=== PATIENT | male | born 1970 | race African-American/Black ===

== ENCOUNTER 2017-02-21 09:43 | Emergency (ER) | payer OTHER ==
[~2017-02-21] VITALS: Ht 190.5 cm; Wt 151.5 kg
[~2017-02-21 09:43] MED LIST: CIPRO HC OTIC S10 M1 OT; CYCLOBENZAPRINE10 MG ORAL; IBUPROFEN800 MG ORAL; PROMETHAZINE-C118 M1 ORAL; UNOBMED
[2017-02-21 09:58] VITALS: BP 150/86
--- NOTE | 2017-02-21 10:02 | Emergency Room Report ---
History of Present Illness General Chief Complaint: Upper Respiratory Illness Source: Patient, Medical Record Present Illness HPI 46-year-old male with history of diabetes and COPD, p/w cough and wheezing for 14 days. +SOB occurs both at rest and on exertion. + Productive cough with yellow sputum , nonbloody . Denies chest pain. Patient was seen by his primary care doctor 2 weeks ago, finished a course of azithromycin as well as cough medicine. Patient only has controller inhaler, which he has been using every day. Patient does not have nebulizer at home. No recent steroid use. Denies fever, chills. Denies sick contacts or recent travel. Patient denies history of ICU admissions, intubations, or usage of BIPAP for asthma. Patient also states that he has mild urinary frequency and burning, but was tested by his doctor and said that his urine was negative. Allergies: Coded Allergies: No Known Allergies (Unverified , 03/21/16) Patient History Past Medical History: see triage record Past Surgical History: none Pertinent Family History: none Reviewed Nursing Documentation: PMH: Agreed, PSxH: Agreed Nursing Documentation-PMH Past Medical History: No History, Except For Hx Cardiac Problems: No Hx Hypertension: Yes Hx Asthma: Yes Hx COPD: No Hx Diabetes: Yes - type 2 Hx Cancer: No Hx Gastrointestinal Problems: Yes - hernia Hx Dialysis: No Hx Neurological Problems: No Hx Cerebrovascular Accident: No Hx Seizures: No Review of Systems All Other Systems: negative except mentioned in HPI Physical Exam Vital Signs Date Time Temp Pulse Resp B/P (MAP) Pulse Ox O2 Delivery O2 Flow Rate FiO2 02/21/17 09:47 97.7 95 16 150/86 96 Room Air Sp02 EP Interpretation: reviewed, normal General Appearance: normal inspection, well appearing, alert, GCS 15, non-toxic , moderate distress, other - +mod resp distress but is speaking in complete sentences Head: normocephalic, atraumatic Eyes: bilateral eye normal inspection, bilateral eye PERRL, bilateral eye EOMI ENT: normal ENT inspection, normal pharynx, normal voice, moist mucus membranes Neck: normal inspection, full range of motion, supple Respiratory: no retraction, speaking full sentences, other - moderate Expiratory wheezing bilaterally, chest symmetrical Cardiovascular #1: normal inspection, regular rate, rhythm, no edema, normal capillary refill Cardiovascular #2: 2+ radial (R), 2+ radial (L) Gastrointestinal: normal inspection, non tender, soft, non-distended, no guarding Genitourinary: no CVA tenderness Musculoskeletal: normal inspection, back normal, normal range of motion, non- tender Neurologic: normal inspection, alert, oriented x3, responsive, motor strength/ tone normal, sensory intact, normal gait, speech normal Psychiatric: normal inspection, judgement/insight normal, memory normal Skin: normal inspection, normal color, no rash, warm/dry, well hydrated, normal turgor Medical Decision Making Diagnostic Impression: Primary Impression: Pneumonia Additional Impression: COPD exacerbation ER Course 38-year-old male with history of COPD p/w cough and shortness of breath for 2 weeks DDX: COPD exacerbation, pneumonia, upper respiratory infection/viral syndrome Plan: combivent nebulizer treatment x 3, PO steroids, CXR ER Course: Patient has been treated with combivent x 3, steroids. CXR reveals R sided pneumonia Repeat lung auscultation: continues to have minimal wheezing b/l Repeat VS reveals normal RR and SpO2. abx given to pneumonia (already finished course of azithro), ceftriaxone/doxy given resp status stable at this time, no bipap required Disposition: Patient will be transferred to outside hospital for insurance purposes Signed out patient to Dr. Cormier who has accepted patient for admission Please note that this Emergency Department Report was dictated using [employer] checker technology software, occasionally this can lead to erroneous entry secondary to interpretation by the dictation equipment. Laboratory Tests Test 02/21/17 10:04 02/21/17 10:40 02/21/17 10:50 Urine Color Yellow Urine Appearance Clear Urine pH 5 (4.5-8.0) Urine Specific [place] 1.025 (1.005-1.035) Urine Protein Negative (NEGATIVE) Urine Glucose (UA) 3+ (NEGATIVE) H Urine Ketones 1+ (NEGATIVE) H Urine Occult Blood Negative (NEGATIVE) Urine Nitrite Negative (NEGATIVE) Urine Bilirubin Negative (NEGATIVE) Urine Urobilinogen 1 MG/DL (0.0-1.0) H Urine Leukocyte Esterase 1+ (NEGATIVE) H Urine RBC 0-2 /HPF (0 - 0) H Urine WBC 0-2 /HPF (0 - 0) Urine Squamous Epithelial Cells Occasional /LPF Urine Bacteria Few /HPF (NONE) Urine Hyaline Casts 2-4 /LPF (NONE) H Urine Mucus Few /LPF (NONE/OCC) H Arterial Blood pH 7.440 (7.350-7.450) Arterial Blood Partial Pressure CO2 44.1 mmHg (35.0-45.0) Arterial Blood Partial Pressure O2 64.0 mmHg (75.0-100.0) L Arterial Blood HCO3 29.9 mmol/L (22.0-26.0) H Arterial Blood Oxygen Saturation 92.4 % (92.0-98.0) Arterial Blood Base Excess 5.1 David Test Positive White Blood Count 9.6 K/UL (4.8-10.8) Red Blood Count 5.42 M/UL (4.70-6.10) Hemoglobin 15.4 G/DL (14.2-18.0) Hematocrit 49.4 % (42.0-52.0) Mean Corpuscular Volume 91 FL (80-99) Mean Corpuscular Hemoglobin 28.3 PG (27.0-31.0) Mean Corpuscular Hemoglobin Concent 31.1 G/DL (32.0-36.0) L Red Cell Distribution Width 13.3 % (11.6-14.8) Platelet Count 217 K/UL (150-450) Mean Platelet Volume 7.9 FL (6.5-10.1) Neutrophils (%) (Auto) 54.8 % (45.0-75.0) Lymphocytes (%) (Auto) 35.3 % (20.0-45.0) Monocytes (%) (Auto) 7.9 % (1.0-10.0) Eosinophils (%) (Auto) 0.8 % (0.0-3.0) Basophils (%) (Auto) 1.3 % (0.0-2.0) Sodium Level 136 mEQ/L (135-145) Potassium Level 4.6 mEQ/L (3.4-4.9) Chloride Level 95 mEQ/L (98-107) L Carbon Dioxide Level 29 mEQ/L (20-30) Anion Gap 12 (5-15) Blood Urea Nitrogen 16 mg/dL (7-23) Creatinine 0.9 mg/dL (0.7-1.2) Estimate Glomerular Filtration Rate > 60 mL/min (>60) Glucose Level 244 mg/dL (74-106) H Calcium Level 9.2 mg/dL (8.6-10.2) Total Bilirubin 0.4 mg/dL (0.0-1.2) Aspartate Amino Transferase (AST) 22 U/L (5-40) Alanine Aminotransferase (ALT) 35 U/L (3-41) Alkaline Phosphatase 55 U/L (40-129) Total Protein 7.3 g/dL (6.6-8.7) Albumin 4.2 g/dL (3.5-5.2) Globulin 3.1 g/dL Albumin/Globulin Ratio 1.3 (1.0-2.7) EKG Diagnostic Results Rate: normal Rhythm: NSR ST Segments: no acute changes ASA given to the pt in ED: No Rhythm Strip Diag. Results EP Interpretation: yes Rate: 91 Rhythm: NSR, no PVC's, no ectopy Chest X-Ray Diagnostic Results Chest X-Ray Diagnostic Results : Chest X-Ray Ordered: Yes # of Views/Limited/Complete: 1 View Indication: Shortness of Breath EP Interpretation: Yes Interpretation: other - R sided infilrate Impression: Other - R sided pneumonia Electronically Signed by: Electronically signed by Aline Hauser MD Last Vital Signs Date Time Temp Pulse Resp B/P (MAP) Pulse Ox O2 Delivery O2 Flow Rate FiO2 02/21/17 09:47 97.7 95 16 150/86 96 Room Air Disposition: XFER SHT-TRM HOSP Condition: Serious Scripts Benzonatate* (TESSALON PERLE*) 100 Mg Capsule 100 MG ORAL THREE TIMES A DAY for 7 Days, #21 PERLE 0 Refills Prov: Retino,Bettyirose M.D. 02/21/17 Prednisone* (PREDNISONE*) 20 Mg Tablet 40 MG ORAL DAILY for 5 Days, #5 TAB 0 Refills Prov: Retino,Clairose M.D. 02/21/17 Albuterol Sulfate* (ALBUTEROL SULFATE HHN*) 2.5 Mg/3 Ml Vial.neb 2.5 MG HHN Q4H Y for Shortness of Breath, #25 VIAL 0 Refills Prov: Retino,Clairose M.D. 02/21/17 Nebulizer (Compact Compressor Nebulizer) 1 Each Each [facility], #1 0 Refills Prov: RetinoBettyirose M.D. 02/21/17 RetinoBettyirose [email or web address] Feb 21, 2017 10:02
[2017-02-21] MEDS ORDERED: ALBUTEROL2.5 MG/3 M HHN (10:13)
[2017-02-21] MEDS ORDERED: COMPACT COMPRE1 EACH MC (10:13)
[2017-02-21] MEDS ORDERED: PREDNISONE20 MG ORAL (10:13)
[2017-02-21] MEDS ORDERED: TESSALON PERLE100 MG ORAL (10:17)
[2017-02-21] MEDS: DuoNeb 0.5-3(2.5)mg/3ml neb HHN SCH ×2 (10:18→10:27)
[2017-02-21] MEDS ORDERED: cefTRIAXone 1 GM in NS 55 ML IVPB ONE (10:30)
[2017-02-21] MEDS ORDERED: VITAMIN B COMP1 EAC2 ORAL (10:41)
[2017-02-21] MEDS ORDERED: GABAPENTIN300 MG ORAL (10:41)
[2017-02-21] MEDS ORDERED: GLIPIZIDE5 MG ORAL (10:41)
[2017-02-21] MEDS ORDERED: JANUMET 50-1,01 EACH ORAL (10:41)
[2017-02-21] MEDS ORDERED: COMBIVENT RESPIM4 GM IH (10:41)
[2017-02-21] MEDS ORDERED: MI-ACID80 MG PO (10:41)
[2017-02-21] MEDS ORDERED: DICLOFENAC SODI75 MG ORAL (10:41)
[2017-02-21] MEDS ORDERED: EZETIMIBE10 MG PO (10:41)
[2017-02-21] MEDS ORDERED: DOK250 M1 PO (10:41)
[2017-02-21 10:47] LABS: ABG ALLEN TEST POSITIVE; ABG BASE EXCESS 5.1; ABG PCO2 44.1 mmHg (35.0-45.0)
--- NOTE | 2017-02-21 10:54 | Diagnostic Imaging Report ---
Indication: Dyspnea Comparison: None A single view chest radiograph was obtained. Findings: Exam limited by rotation. There is a suggestion of interstitial edema. Heart is normal in size. The homero appear prominent which is probably vascular in nature. Bones are unremarkable. Impression: Mild interstitial edema suspected. Please correlate clinically. Suboptimal evaluation due to rotation
[2017-02-21 11:05] LABS: BASOPHILS % (AUTO) 1.3 % (0.0-2.0); EOSINOPHILS % (AUTO) 0.8 % (0.0-3.0); LYMPHOCYTES % (AUTO) 35.3 % (20.0-45.0); MEAN CORPUSCULAR HEMOGLOBIN 28.3 PG (27.0-31.0); MEAN CORPUSCULAR HGB CONC 31.1 G/DL (32.0-36.0); MEAN CORPUSCULAR VOLUME 91 FL (80-99); MEAN PLATELET VOLUME 7.9 FL (6.5-10.1); MONOCYTES % (AUTO) 7.9 % (1.0-10.0); NEUTROPHILS % (AUTO) 54.8 % (45.0-75.0); PLATELET COUNT 217 K/UL (150-450); RED BLOOD COUNT 5.42 M/UL (4.70-6.10); RED CELL DISTRIBUTION WIDTH 13.3 % (11.6-14.8); WHITE BLOOD COUNT 9.6 K/UL (4.8-10.8)
[2017-02-21] MEDS ORDERED: Methocarbamol 750mg tab ORAL ONE (11:15)
[2017-02-21 11:19] LABS: APPEARANCE,URINE CLEAR; KETONES,URINE 1+ (NEGATIVE); LEUKOCYTE ESTERASE ,URINE 1+ (NEGATIVE); NITRITE,URINE NEGATIVE (NEGATIVE); PH,URINE 5 (4.5-8.0); PROTEIN,URINE NEGATIVE (NEGATIVE); UROBILINOGEN,URINE 1 MG/DL (0.0-1.0)
[2017-02-21 11:26] LABS: ALANINE AMINOTRANSFERASE 35 U/L (3-41); ALBUMIN/GLOBULIN RATIO 1.3 (1.0-2.7); ANION GAP 12 (5-15); ASPARTATE AMINO TRANSFERASE 22 U/L (5-40); CALCIUM 9.2 mg/dL (8.6-10.2); CARBON DIOXIDE 29 mEQ/L (20-30); CHLORIDE 95 mEQ/L (98-107); CREATININE 0.9 mg/dL (0.7-1.2); GLOMERULAR FILTRATION RATE > 60 mL/min (>60); HEMOLYSIS 4; POTASSIUM 4.6 mEQ/L (3.4-4.9); SODIUM 136 mEQ/L (135-145); TOTAL PROTEIN 7.3 g/dL (6.6-8.7)
[2017-02-21 11:28] LABS: BACTERIA,URINE FEW /HPF; MUCUS,URINE FEW /LPF (NONE/OCC); RBC,URINE 0-2 /HPF (0 - 0); SQUAMOUS EPITHELIAL CELL,UR OCCASIONAL /LPF (NONE/OCC); WBC,URINE 0-2 /HPF (0 - 0)
[2017-02-21 11:53] VITALS: BP 144/69
[2017-02-21 13:56] VITALS: BP 146/67
[2017-02-21 13:57] VITALS: BP 146/67
--- NOTE | 2017-02-22 19:04 | Cardiology Report ---
APPROVED REPORT EKG Measurement Heart [id number] Normal sinus rhythm Normal ECG
== END 2017-02-21 13:57 | disposition short-term general hospital (02) ==
LOC: EMR 10:05
DX: J18.9 Pneumonia, unspecified organism (principal); J44.1 Chronic obstructive pulmonary disease with (acute) exacerbation; I10 Essential (primary) hypertension; J45.909 Unspecified asthma, uncomplicated; E11.9 Type 2 diabetes mellitus without complications
CPT/HCPCS: 36415; 36600; 71010; 80053; 81003; 82803; 82962; 85025; 93005; 94640; 94664; 96365; 99284; J0696; J7620